=== PATIENT | male | born 1970 | race Caucasian/White ===

== ENCOUNTER 2017-12-01 13:19 | Outpatient (CLI) | payer OTHER ==
[2017-12-01 13:27] LABS: BASOPHILS % 0.6 (0.0-1.5); EOSINOPHILS % 2.8 % (0.0-6.8); MEAN CORPUSCULAR VOLUME 90.7 fl (80.0-100.0); MONOCYTES % 8.5 % (0.0-11.0); NEUTROPHILS # 3.5 # k/uL (1.4-7.7)
[2017-12-01 13:37] LABS: eGFR (African) > 60; eGFR (Non-African) > 60
== END 2017-12-01 13:20 ==
LOC: LAB 13:19
PROVIDERS: ATTEND General Practice
DX: L03.90 Cellulitis, unspecified (principal)
CPT/HCPCS: 80053; 85025